=== PATIENT | male | born 1945 | race African-American/Black ===

== ENCOUNTER 2020-09-17 09:37 | Day surgery (SDC) | payer OTHER ==
[2020-09-13 10:02] VITALS: BMI 25.5
[2020-09-17 10:04] VITALS: TEMP 98.7
[2020-09-17 12:05] VITALS: BP 142/72; PULSE 61
== END 2020-09-17 12:15 | disposition home or self-care (01) ==
LOC: FASU-ENDO 09:37
PROVIDERS: ATTEND Internal Medicine Gastroenterology
PROC: 0DBK8ZX Excision of Ascending Colon, Via Natural or Artificial Opening Endoscopic, Diagnostic (ICD-10-PCS; principal; 2020-09-17 11:10)
DX: Z12.11 Encounter for screening for malignant neoplasm of colon (principal); D12.2 Benign neoplasm of ascending colon; K64.0 First degree hemorrhoids; K64.8 Other hemorrhoids
CPT/HCPCS: 82962; 88305-TC

== ENCOUNTER 2024-06-04 22:19 | Emergency (ER) | payer OTHER ==
[2024-06-04 22:28] VITALS: BMI 25.3
[2024-06-04 23:26] LABS: VENOUS PH 7.127 (7.310-7.410)
[2024-06-04 23:27] LABS: VENOUS PCO2 95.2 mmHg (38-52)
[2024-06-04 23:35] LABS: BASO % 0.5 % (0-2.0); HEMATOCRIT 37.6 % (35.4-49); HEMOGLOBIN 11.8 GM/dL (11.7-16.9); LYMPH % 9.3 % (8-40); MCH 28.4 pg (25.7-33.7); MCHC 31.2 g/dl (32.0-35.9); MEAN CELL VOLUME 91.1 fl (80-96); MEAN PLT VOLUME 8.4 fl (7.5-11.1); MONO % 10.2 % (3.8-10.2); PLATELET COUNT 258 10^3/uL (134-434); RBC 4.13 M/mm3 (4.00-5.60); RDW 16.3 % (11.9-15.9); WHITE BLOOD COUNT 6.2 K/mm3 (4.0-10.0)
[2024-06-04 23:38] LABS: CHLORIDE 95 mmol/L (98-107); SODIUM 131 mmol/L (136-145)
[2024-06-04 23:40] LABS: CALCIUM 8.8 mg/dL (8.5-10.1)
[2024-06-04 23:41] LABS: ALBUMIN 3.6 g/dl (3.4-5.0); ANION GAP 4 mmol/L (4-13); BLOOD UREA NITROGEN 72.7 mg/dL (7-18); CO2 32 mmol/L (21-32); MAGNESIUM 3.3 mg/dL (1.8-2.4); POTASSIUM 6.7 mmol/L (3.5-5.1)
[2024-06-04 23:42] LABS: INR 1.19 (0.83-1.09); PROTHROMBIN TIME (PATIENT) 13.4 SEC (9.7-13.0)
[2024-06-04 23:43] LABS: SGPT/ALT 91 U/L (13-61)
[2024-06-04 23:44] LABS: PHOSPHOROUS 5.8 mg/dL (2.5-4.9); SGOT/AST 47 U/L (15-37)
[2024-06-04 23:45] LABS: BILIRUBIN,TOTAL 0.4 mg/dL (0.2-1); TOT PROT 8.2 g/dl (6.4-8.2)
[2024-06-04 23:46] LABS: ALK PHOS 161 U/L (45-117)
[2024-06-04 23:48] LABS: GLUCOSE,RANDOM 614 mg/dL (74-106)
[2024-06-05] MEDS: INSULIN (NOVOLOG) ASPART 100 UNITS/ML 10ML VIAL SQ ONE (01:15)
[2024-06-05 03:43] VITALS: BP 183/74; PULSE 96; RESP 18; TEMP 98.3
== END 2024-06-05 03:58 | disposition short-term general hospital (02) ==
LOC: JER 22:19
PROC: 3E013VG Introduction of Insulin into Subcutaneous Tissue, Percutaneous Approach (ICD-10-PCS; principal; 2024-06-05)
DX: I31.39 Other pericardial effusion (noninflammatory) (principal); R41.82 Altered mental status, unspecified; R63.0 Anorexia; R53.1 Weakness; R05.9 Cough, unspecified; R06.82 Tachypnea, not elsewhere classified; E11.9 Type 2 diabetes mellitus without complications; Z20.822 Contact with and (suspected) exposure to COVID-19
CPT/HCPCS: 0241U-QW; 36415; 71045-TC-FY; 80053; 82803; 82962; 83735; 83880; 84100; 84484; 85025; 85610; 86850; 86900; 86901; 93005; 93010; 99291